=== PATIENT | female | born 1955 | race African-American/Black ===

== ENCOUNTER 2018-10-12 09:20 | Emergency (ER) | payer MEDICAID ==
[~2018-10-12] VITALS: Ht 167.6 cm; Wt 95.0 kg
[2018-10-12] MEDS ORDERED: ACETAMINOPHEN 325MG TABLET PO ONE (10:15)
[2018-10-12 11:27] VITALS: BP 132/86
== END 2018-10-12 11:27 | disposition home or self-care (01) ==
LOC: ER 09:20
DX: H61.23 Impacted cerumen, bilateral (principal)
CPT/HCPCS: 69209; 99282

== ENCOUNTER 2019-01-05 15:32 | Emergency (ER) | payer MEDICAID ==
[~2019-01-05] VITALS: Ht 160 cm; Wt 94.0 kg
[2019-01-05 16:29] VITALS: BP 137/84
[2019-01-05] MEDS ORDERED: PREDNISONE 20MG TABLET PO ONE (22:30)
[2019-01-05] MEDS ORDERED: DIPHENHYDRAMINE 25MG CAPSULE PO ONE (22:30)
[2019-01-05] MEDS ORDERED: FAMOTIDINE 20MG TABLET PO ONE (22:30)
== END 2019-01-05 22:30 | disposition home or self-care (01) ==
LOC: ER 15:32
DX: R21 Rash and other nonspecific skin eruption (principal); F41.9 Anxiety disorder, unspecified; Z98.890 Other specified postprocedural states
CPT/HCPCS: 82962; 99283; J7512; Q0163

== ENCOUNTER 2019-07-01 08:12 | Emergency (ER) | payer MEDICAID ==
[~2019-07-01] VITALS: Ht 165.1 cm; Wt 91.0 kg
[2019-07-01] MEDS ORDERED: SODIUM CHLORIDE 0.9% 500 ML IV ONE (09:16)
[2019-07-01] MEDS ORDERED: ONDANSETRON HCL 4MG/2ML INJ IV STA (09:16)
[2019-07-01 09:55] LABS: BASOPHILS % 0.6 % (0.0-2.0); EOSINOPHILS % 0.7 % (0.0-5.0); HEMATOCRIT. 41.8 % (36.0-48.0); HEMOGLOBIN. 13.1 g/dL (12.0-16.0); MEAN CORPUSCULAR HEMOGLOBIN 22.2 pg (28.0-32.0); MEAN PLATELET VOLUME 7.9 fl (7.4-10.4); MONOCYTES % 7.1 % (2.0-8.0); NEUTROPHILS % 57.6 % (40.0-76.0); PLATELET 228 x1000/uL (130-400); RED BLOOD CELL COUNT 5.89 mill/uL (4.2-5.4); RED CELL DISTRIBUTION WIDTH 16.8 % (11.6-14.6)
[2019-07-01 09:58] LABS: CHLORIDE 109 mEq/L (98-107)
[2019-07-01 10:00] LABS: INR 1.1; PROTHROMBIN TIME 10.8 sec (9.6-11.0)
[2019-07-01 11:15] VITALS: BP 144/94
[2019-07-01 11:17] LABS: CLARITY URINE CLEAR (CLEAR); COLOR URINE YELLOW (YELLOW); KETONES URINE NEGATIVE (NEGATIVE); LEUKOCYTE ESTERASE URINE 3+ (NEGATIVE); NITRITE URINE NEGATIVE (NEGATIVE); OCCULT BLOOD URINE NEGATIVE (NEGATIVE); PH URINE 7.5 (4.5-8.0); PROTEIN URINE NEGATIVE (NEGATIVE); SPECIFIC GRAVITY URINE 1.008 (1.005-1.030); UROBILINOGEN URINE 0.2 E.U./dL (0.2-1.0)
== END 2019-07-01 12:36 | disposition home or self-care (01) ==
LOC: ER 08:12
DX: R10.84 Generalized abdominal pain (principal); K59.00 Constipation, unspecified; F41.9 Anxiety disorder, unspecified
CPT/HCPCS: 36415; 74177; 80053; 81003; 83690; 85025; 85610; 96361; 96374; 99284; J2405; J7030

== ENCOUNTER 2019-09-07 14:38 | Emergency (ER) | payer MEDICAID ==
[~2019-09-07] VITALS: Ht 152.4 cm; Wt 90.0 kg
[2019-09-07 15:42] VITALS: BP 133/82
== END 2019-09-07 20:39 | disposition left against medical advice (07) ==
LOC: ER 14:38
DX: Z53.21 Procedure and treatment not carried out due to patient leaving prior to being seen by health care provider (principal)

== ENCOUNTER 2019-09-08 11:39 | Emergency (ER) | payer MEDICAID ==
[~2019-09-08] VITALS: Ht 162.6 cm; Wt 87.0 kg
[2019-09-08 12:42] VITALS: BP 125/87
== END 2019-09-08 12:42 | disposition home or self-care (01) ==
LOC: ER 11:39
DX: H61.23 Impacted cerumen, bilateral (principal); H92.03 Otalgia, bilateral
CPT/HCPCS: 69209; 99282

== ENCOUNTER 2019-09-16 12:27 | Inpatient (IN) | payer MEDICAID, MEDICARE ==
[~2019-09-16] VITALS: Ht 170.2 cm; Wt 93.0 kg
[2019-09-16] MEDS ORDERED: DIPH25TA23 MT (13:00)
[2019-09-16] MEDS ORDERED: RISP0.5T19 MT (13:01)
[2019-09-16] MEDS ORDERED: CLON0.5T23 MT (13:02)
[2019-09-16 18:00] LABS: BASOPHILS % 0.5 % (0.0-2.0); EOSINOPHILS % 0.3 % (0.0-5.0); HEMOGLOBIN. 13.6 g/dL (12.0-16.0); LYMPHOCYTES % 22.3 % (20.0-50.0); MEAN CORPUSCULAR HEMOGLOBIN 22.7 pg (28.0-32.0); MEAN CORPUSCULAR VOLUME 71.7 fL (81.0-99.0); NEUTROPHILS % 69.9 % (40.0-76.0); PLATELET 200 x1000/uL (130-400); RED CELL DISTRIBUTION WIDTH 16.8 % (11.6-14.6)
[2019-09-16 18:12] LABS: CHLORIDE 104 mEq/L (98-107)
[2019-09-16 18:14] LABS: ETHANOL BLOOD < 10 mg/dL
[2019-09-16 18:20] LABS: CREATINE KINASE 196 IU/L (26-192)
[2019-09-16] MEDS ORDERED: SODIUM CHLORIDE 0.9% 1,000 ML IV ONE (19:00)
[2019-09-16 22:22] LABS: CLARITY URINE CLEAR (CLEAR); COLOR URINE YELLOW (YELLOW); KETONES URINE 2+ (NEGATIVE); LEUKOCYTE ESTERASE URINE NEGATIVE (NEGATIVE); NITRITE URINE NEGATIVE (NEGATIVE); OCCULT BLOOD URINE NEGATIVE (NEGATIVE); PROTEIN URINE NEGATIVE (NEGATIVE); SPECIFIC GRAVITY URINE 1.013 (1.005-1.030); UROBILINOGEN URINE 0.2 E.U./dL (0.2-1.0)
[2019-09-16 22:37] LABS: *AMPHETAMINES SCREEN URINE NEGATIVE (NEGATIVE); *BARBITURATES SCREEN URINE NEGATIVE (NEGATIVE); *BENZODIAZEPINES SCREEN URINE NEGATIVE (NEGATIVE); *COCAINE SCREEN URINE NEGATIVE (NEGATIVE); CANNABINOID URINE SCREEN NEGATIVE (NEGATIVE); OPIATES URINE SCREEN NEGATIVE (NEGATIVE); PHENCYCLIDINE URINE SCREEN NEGATIVE (NEGATIVE)
[2019-09-17 00:20] VITALS: BP 131/85
[2019-09-17 00:30] VITALS: BP 131/85
[2019-09-17] MEDS: DEXT 5%/0.45% NACL KCL 20MEQ/L 1,000 ML IV SCH ×2 (05:02→15:44)
[2019-09-17 08:00] VITALS: BP 126/77
[2019-09-17 08:03] LABS: BG BASE EXCESS -0.7 mmol/L (-2.0-2.0); BG CARBOXYHEMOGLOBIN 0.9 % (0.5-1.5); BG DEOXYHEMOGLOBIN 3.2 % (0.0-5.0); BG FRACTION INSPIRED OXYGEN 21; BG HCO3 ACT 23.4 mmol/L (22.0-26.0); BG METHEMOGLOBIN 0.2 % (0.0-1.5); BG OXYGEN SATURATION 96.8 % (92.0-98.5); BG OXYHEMOGLOBIN 95.7 % (94.0-97.0); BG PCO2 36.5 mmHg (35.0-45.0); BG PH 7.424 (7.350-7.450); BG PO2 81.1 mmHg (75.0-100.0); BG SAMPLE SITE RIGHT BRACHIAL; BG TOTAL HEMOGLOBIN 12.6 g/dL (12.0-18.0); BG VENT MODE ROOM AIR
[2019-09-17 08:04] LABS: BASOPHILS % 0.3 % (0.0-2.0); EOSINOPHILS % 0.3 % (0.0-5.0); HEMATOCRIT. 39.2 % (36.0-48.0); HEMOGLOBIN. 12.7 g/dL (12.0-16.0); LYMPHOCYTES % 15.8 % (20.0-50.0); MEAN CORPUSCULAR HEMOGLOBIN 22.8 pg (28.0-32.0); MEAN CORPUSCULAR VOLUME 70.6 fL (81.0-99.0); MEAN PLATELET VOLUME 8.3 fl (7.4-10.4); NEUTROPHILS % 76.6 % (40.0-76.0); PLATELET 215 x1000/uL (130-400); RED BLOOD CELL COUNT 5.55 mill/uL (4.2-5.4); RED CELL DISTRIBUTION WIDTH 16.6 % (11.6-14.6)
[2019-09-17 08:04] LABS: CHLORIDE 104 mEq/L (98-107)
[2019-09-17] MEDS ORDERED: ONDANSETRON HCL 4MG/2ML INJ IV PRN (09:45)
[2019-09-17 12:00] VITALS: BP 121/75
[2019-09-17 16:00] VITALS: BP 132/78
[2019-09-17 16:36] LABS: VITAMIN B12 SERUM 1222 pg/mL (211-911)
[2019-09-17] MEDS: ACETAMINOPHEN 325MG TABLET PO PRN (17:43)
[2019-09-17 20:00] VITALS: BP 144/85
[2019-09-18] VITALS: BP 123/63
[2019-09-18 06:39] LABS: CHLORIDE 107 mEq/L (98-107)
[2019-09-18] MEDS: DEXT 5%/0.45% NACL KCL 20MEQ/L 1,000 ML IV SCH ×3 (06:40→20:00)
[2019-09-18 08:00] VITALS: BP 108/73
[2019-09-18 10:01] LABS: BASOPHILS % 0.4 % (0.0-2.0); EOSINOPHILS % 0.4 % (0.0-5.0); HEMATOCRIT. 42.9 % (36.0-48.0); HEMOGLOBIN. 13.5 g/dL (12.0-16.0); MEAN CORPUSCULAR HEMOGLOBIN 22.3 pg (28.0-32.0); MEAN CORPUSCULAR VOLUME 70.7 fL (81.0-99.0); MEAN PLATELET VOLUME 8.4 fl (7.4-10.4); MONOCYTES % 7.1 % (2.0-8.0); NEUTROPHILS % 81.1 % (40.0-76.0); PLATELET 236 x1000/uL (130-400); RED BLOOD CELL COUNT 6.07 mill/uL (4.2-5.4); RED CELL DISTRIBUTION WIDTH 16.7 % (11.6-14.6)
[2019-09-18 16:07] LABS: METHADONE URINE SCREEN NEGATIVE (NEGATIVE)
[2019-09-18 20:00] VITALS: BP 108/75
[2019-09-19] VITALS (7 sets, daily range): BP systolic 106–125; BP diastolic 57–87
[2019-09-19] MEDS: DEXT 5%/0.45% NACL KCL 20MEQ/L 1,000 ML IV SCH (06:00)
[2019-09-19] MEDS ORDERED: HYDROCODONE/ACETAMINOPHEN 5/325MG TABLET PO PRN (15:30)
[2019-09-19] MEDS ORDERED: LORAZEPAM 2MG/ML CPJ IV PRN (15:30)
[2019-09-19] MEDS ORDERED: ONDANSETRON HCL 4MG/2ML INJ IV PRN (15:30)
[2019-09-19] MEDS ORDERED: DIPHENHYDRAMINE 50MG/ML VIAL IV PRN (15:30)
[2019-09-19] MEDS: CLONAZEPAM 0.5MG TABLET PO SCH (16:56)
[2019-09-19] MEDS ORDERED: MEDICATION NOT ON FORMULARY EA (Clonazepam 1 TAB) MT SCH (17:00)
[2019-09-19] MEDS ORDERED: RISPERIDONE 0.5MG TABLET PO SCH (21:00)
[2019-09-19] MEDS ORDERED: LACTULOSE 20G/30ML UDC PO PRN (21:00)
[2019-09-19] MEDS: RISPERIDONE 0.5MG TABLET PO SCH (22:09)
[2019-09-20 04:15] VITALS: BP_SYST 12; BP_SYST 120; BP_DIAS 68
[2019-09-20 07:51] VITALS: BP 115/70
[2019-09-20] MEDS: CLONAZEPAM 0.5MG TABLET PO SCH ×2 (08:26→17:19)
[2019-09-20] MEDS: RISPERIDONE 0.5MG TABLET PO SCH ×2 (08:26→17:20)
[2019-09-20 11:52] VITALS: BP 124/83
[2019-09-20 15:42] VITALS: BP 126/80
[2019-09-20 20:00] VITALS: BP 122/89
[2019-09-21] VITALS: BP 128/78
[2019-09-21 04:00] VITALS: BP 125/81
[2019-09-21 08:00] VITALS: BP 126/85
[2019-09-21] MEDS: CLONAZEPAM 0.5MG TABLET PO SCH ×2 (08:53→16:50)
[2019-09-21] MEDS: RISPERIDONE 0.5MG TABLET PO SCH (08:53)
[2019-09-21 12:00] VITALS: BP 129/76
[2019-09-21 16:00] VITALS: BP 139/88
[2019-09-21] MEDS ORDERED: RISPERIDONE 1MG TABLET PO SCH (17:47)
[2019-09-21] MEDS: RISPERIDONE 1MG TABLET PO SCH (18:04)
[2019-09-21 20:03] VITALS: BP 129/73
[2019-09-21] MEDS: ACETAMINOPHEN 325MG TABLET PO PRN (21:51)
[2019-09-22] VITALS: BP_SYST 107; BP_DIAS 54; BP_DIAS 56
[2019-09-22 04:00] VITALS: BP 119/51
[2019-09-22 07:22] LABS: BASOPHILS % 0.6 % (0.0-2.0); HEMATOCRIT. 38.9 % (36.0-48.0); HEMOGLOBIN. 12.6 g/dL (12.0-16.0); LYMPHOCYTES % 26.5 % (20.0-50.0); MEAN CORPUSCULAR VOLUME 70.9 fL (81.0-99.0); MEAN PLATELET VOLUME 7.9 fl (7.4-10.4); MONOCYTES % 9.5 % (2.0-8.0); NEUTROPHILS % 61.4 % (40.0-76.0); PLATELET 220 x1000/uL (130-400); RED BLOOD CELL COUNT 5.49 mill/uL (4.2-5.4); RED CELL DISTRIBUTION WIDTH 16.7 % (11.6-14.6)
[2019-09-22 08:00] VITALS: BP 116/68
[2019-09-22 08:24] LABS: CHLORIDE 106 mEq/L (98-107)
[2019-09-22] MEDS: ACETAMINOPHEN 325MG TABLET PO PRN (08:40)
[2019-09-22] MEDS: CLONAZEPAM 0.5MG TABLET PO SCH ×2 (09:39→18:49)
[2019-09-22] MEDS: RISPERIDONE 1MG TABLET PO SCH ×2 (09:39→18:49)
[2019-09-22 12:00] VITALS: BP 122/61
[2019-09-22] MEDS: DILTIAZEM HCL 30MG TABLET PO SCH ×2 (12:56→20:24)
[2019-09-22 16:00] VITALS: BP 118/68
[2019-09-22 20:00] VITALS: BP 114/64
[2019-09-23] VITALS: BP 102/60
[2019-09-23 04:00] VITALS: BP 117/62
[2019-09-23] MEDS: ACETAMINOPHEN 325MG TABLET PO PRN (06:36)
[2019-09-23 08:01] VITALS: BP 108/60
[2019-09-23] MEDS: DILTIAZEM HCL 30MG TABLET PO SCH (09:00)
[2019-09-23] MEDS: RISPERIDONE 1MG TABLET PO SCH ×2 (09:32→16:32)
[2019-09-23] MEDS: CLONAZEPAM 0.5MG TABLET PO SCH ×2 (09:32→16:32)
[2019-09-23 12:00] VITALS: BP 104/64
[2019-09-23 16:09] VITALS: BP 134/81
[2019-09-23 17:34] VITALS: BP 107/65
== END 2019-09-23 19:17 | disposition home or self-care (01) | DRG 52 ==
LOC: ER 12:27 → 5WST 20:48 → ENRESERV 23:02 → 7WST 09-19 18:01
PROVIDERS: ADMIT Internal Medicine; ATTEND Internal Medicine
PROC: 4A00X4Z Measurement of Central Nervous Electrical Activity, External Approach (ICD-10-PCS; principal; 2019-09-16)
DX: G93.40 Encephalopathy, unspecified (principal); E87.2 Acidosis; F20.2 Catatonic schizophrenia; E66.9 Obesity, unspecified; F41.9 Anxiety disorder, unspecified; E87.6 Hypokalemia; Z79.899 Other long term (current) drug therapy; Z68.32 Body mass index [BMI] 32.0-32.9, adult
CPT/HCPCS: 36415; 36600; 70551; 80048; 80053; 80076; 80305; 80307; 80320; 80329; 81003; 82140; 82375; 82550; 82607; 82805; 82962; 83605; 83880; 84436; 84443; 84484; 85025; 86592; 93005; 95816; 97162; 99285; G0480

== ENCOUNTER 2020-04-07 08:07 | Emergency (ER) | payer MEDICAID, MEDICARE ==
[~2020-04-07] VITALS: Ht 167.6 cm; Wt 81.0 kg
[~2020-04-07 08:07] MED LIST: CLON0.5T23 MT; DIPH25TA23 MT; RISP0.5T19 MT
[2020-04-07 08:08] VITALS: BP 118/72
== END 2020-04-07 08:36 | disposition home or self-care (01) ==
LOC: ER 08:07
DX: S40.862A Insect bite (nonvenomous) of left upper arm, initial encounter (principal); W57.XXXA Bitten or stung by nonvenomous insect and other nonvenomous arthropods, initial encounter; Y93.89 Activity, other specified; Y92.89 Other specified places as the place of occurrence of the external cause; Y99.8 Other external cause status
CPT/HCPCS: 99282

== ENCOUNTER 2021-03-05 19:05 | Emergency (ER) | payer MEDICAID ==
[~2021-03-05] VITALS: Ht 165.1 cm; Wt 77.3 kg
[~2021-03-05 19:05] MED LIST changes: -RISP0.5T19 MT; +RISP0.5T65 MT
[2021-03-05 19:38] VITALS: BP 115/78
[2021-03-05] MEDS ORDERED: IBUPROFEN 600MG TABLET PO ONE (20:15)
[2021-03-05] MEDS ORDERED: IBUP-2029 MT (21:13)
== END 2021-03-05 21:26 | disposition home or self-care (01) ==
LOC: ER 19:05
DX: M25.551 Pain in right hip (principal)
CPT/HCPCS: 73502; 99283

== ENCOUNTER 2021-05-04 11:31 | Emergency (ER) | payer MEDICAID ==
[~2021-05-04] VITALS: Ht 167.6 cm; Wt 72.9 kg
[~2021-05-04 11:31] MED LIST changes: +IBUP-2029 MT
[2021-05-04 11:39] VITALS: BP 108/72
== END 2021-05-04 16:28 | disposition left against medical advice (07) ==
LOC: ER 11:31
DX: Z53.21 Procedure and treatment not carried out due to patient leaving prior to being seen by health care provider (principal)

== ENCOUNTER 2021-05-08 00:03 | Emergency (ER) | payer OTHER, MEDICAID ==
[~2021-05-08] VITALS: Ht 167.6 cm; Wt 74.0 kg
[2021-05-08 00:12] VITALS: BP 134/84
[2021-05-08 01:03] LABS: BASOPHILS % 0.7 % (0.0-2.0); EOSINOPHILS % 1.6 % (0.0-5.0); HEMATOCRIT. 37.9 % (36.0-48.0); HEMOGLOBIN. 11.9 g/dL (12.0-16.0); LYMPHOCYTES % 33.7 % (20.0-50.0); MEAN CORPUSCULAR HEMOGLOBIN 22.5 pg (28.0-32.0); MEAN CORPUSCULAR VOLUME 71.6 fL (81.0-99.0); MEAN PLATELET VOLUME 7.9 fl (7.4-10.4); PLATELET 202 x1000/uL (130-400); RED CELL DISTRIBUTION WIDTH 15.4 % (11.6-14.6)
[2021-05-08 01:12] LABS: CHLORIDE 110 mEq/L (98-107)
[2021-05-08] MEDS ORDERED: CLON0.5T23 MT (01:43)
== END 2021-05-08 03:24 | disposition home or self-care (01) ==
LOC: ER 00:03
DX: F41.9 Anxiety disorder, unspecified (principal); R07.89 Other chest pain
CPT/HCPCS: 36415; 71045; 80053; 83880; 84484; 85025; 93005; 99285

== ENCOUNTER 2022-02-15 11:33 | Emergency (ER) | payer MEDICAID, OTHER ==
[~2022-02-15] VITALS: Ht 167.6 cm; Wt 73.0 kg
[2022-02-15] MEDS ORDERED: KETOROLAC 30MG/ML VIAL IV STA (12:02)
[2022-02-15] MEDS ORDERED: SODIUM CHLORIDE 0.9% 1,000 ML IV ONE (12:15)
[2022-02-15 12:33] LABS: BASOPHILS % 1.5 % (0.0-2.0); EOSINOPHILS % 1.4 % (0.0-5.0); HEMOGLOBIN. 11.6 g/dL (12.0-16.0); LYMPHOCYTES % 26.7 % (20.0-50.0); MEAN CORPUSCULAR HEMOGLOBIN 22.7 pg (28.0-32.0); MEAN CORPUSCULAR VOLUME 72.6 fL (81.0-99.0); MEAN PLATELET VOLUME 7.9 fl (7.4-10.4); MONOCYTES % 6.1 % (2.0-8.0); NEUTROPHILS % 64.3 % (40.0-76.0); PLATELET 194 x1000/uL (130-400); RED BLOOD CELL COUNT 5.09 mill/uL (4.2-5.4); RED CELL DISTRIBUTION WIDTH 16.4 % (11.6-14.6)
[2022-02-15 12:40] LABS: CHLORIDE 108 mEq/L (98-107)
[2022-02-15 12:42] LABS: PROTHROMBIN TIME 11.2 sec (9.6-11.0)
[2022-02-15] MEDS ORDERED: ACETAMINOPHEN 325MG TABLET PO ONE (14:30)
[2022-02-15] MEDS ORDERED: CYCLOBENZAPRINE 10MG TABLET PO ONE (14:30)
[2022-02-15] MEDS ORDERED: NAPR-681 MT (14:40)
[2022-02-15] MEDS ORDERED: CYCL10TA21 MT (14:40)
[2022-02-15 15:18] VITALS: BP 118/75
== END 2022-02-15 16:59 | disposition home or self-care (01) ==
LOC: ER 11:45
DX: M79.621 Pain in right upper arm (principal); R51.9 Headache, unspecified
CPT/HCPCS: 36415; 70450; 71250; 72125; 73030; 73060; 73080; 73590; 74176; 80053; 85025; 85610; 86850; 86900; 86901; 96361; 96374; 99285; J1885; J7030; L1830; A4565

== ENCOUNTER 2024-04-11 15:15 | Emergency (ER) | payer MEDICARE, MEDICAID ==
[~2024-04-11] VITALS: Ht 167.6 cm; Wt 73.0 kg
[~2024-04-11 15:15] MED LIST changes: +CYCL10TA21 MT; +NAPR-681 MT; -RISP0.5T65 MT; +RISP0.5T79 MT
[2024-04-11 15:24] VITALS: BP 95/67; PULSE 84; RESP 16; TEMP 97.9; O2SAT 99
[2024-04-11] MEDS ORDERED: CLON0.5T23 MT ×2 (15:48→15:49)
[2024-04-11] MEDS ORDERED: RISP0.5T79 MT (15:48)
== END 2024-04-11 16:05 | disposition home or self-care (01) ==
LOC: ER 15:15
DX: Z00.00 Encounter for general adult medical examination without abnormal findings (principal); E11.9 Type 2 diabetes mellitus without complications; Z76.0 Encounter for issue of repeat prescription; Z79.899 Other long term (current) drug therapy
CPT/HCPCS: 99283